=== PATIENT | male | born 1995 | race Caucasian/White ===

== ENCOUNTER 2020-01-30 08:32 | Outpatient (REF) | payer OTHER, SELFPAY ==
[2020-01-30 11:10] LABS: Amphetamine Screen Urine Not Detected (Not Detect); Barbiturates, Urine Not Detected (Not Detect); Benzodiazepines Screen Urine Not Detected (Not Detect); Cannabinoid Screen Urine Not Detected (Not Detect); Cocaine Screen Urine Not Detected (Not Detect); Opiate Screen Urine Not Detected (Not Detect); Phencyclidine Screen Urine Not Detected (Not Detect)
== END 2020-01-30 08:33 | disposition home or self-care (01) ==
LOC: HO.LAB 08:32
PROVIDERS: Visit Provider Clinical Nurse Specialist Psychiatric/Mental Health, Adult
DX: F31.81 Bipolar II disorder (principal)
CPT/HCPCS: 80307

== ENCOUNTER 2020-02-06 10:00 | Outpatient (RCR) | payer OTHER, SELFPAY ==
--- NOTE | 2020-01-16 12:18 | PC.NURSE ---
Patient is a 24 year old male who started the PHP program today. He self referred d/t increase in depression symptoms and reports relapsing on ETOH in September and having difficulty maintaining sobriety since. Last drink on 01/09/20. Pt is living with his mother at present and is finding his living situation is contributing to his symptoms of depression and is turning to ETOH to cope. Patient has not attended AA since the summer. Strongly encouraged patient to attend substance use groups along with [facility]. Pt will be receiving a package from [facility] with information on numerous online substance use groups to choose from. Talked to patient about restarting Vivitrol and referral to the [facility] however patient does not want to restart as he stated he did not find it helpful and did not like the injections and is worried about build up of scar tissue. Pt is interested in Naltrexone HCL, Huseyin Gonzales APRN is aware. 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 Patient denied SI. He gave verbal permission to email him a copy of his safety plan and agrees to utilize this if feeling unsafe. He stated he has the crisis number and can call Adam his therapist if needed. Medications reconciled with patient and patients pharmacy. Stated he is taking medications as prescribed.
[2020-01-16 13:16] VITALS: BMI 55.2
--- NOTE | 2020-01-16 16:05 | HO.PS.ADMBH ---
HPI Chief Complaint: depression Sources of Information: patient interviewed and chart reviewed HPI Narrative: 24 yo male, self-referred, hx of bipolar II disorder, for treatment of depression, lability, situational stress, struggling to remain sober as I drink to repress emotions . Reports repetitive relapses-most recently Sep 2019. States I need to make some changes-if I want to make [facility] progress I need to leave home. I have gaps in my recovery plan I need to work on. Describes a very supportive family- when I am doing bad but with an increase in emotional and financial demands when doing well. Reports he is sleeping adequately, appetite is WNL and energy is moderate. Does report passive SI, guilt, feelings of hopelessness and helplessness and low interest. Past Psychiatric History: In Pt: 2018 and 2019 Out Pt: Adam Viera for psychotherapy with [facility] and Dr. 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 Lives with mother, sister, brother Substance History: Recent detox-[facility] Hx ETOH~ 1 pint daily, last use 01/08 Cannabis last used May 2019 LSD, Mushrooms last used 2016 Trauma History: Denies Diagnostics Vital Signs (24Hr): Body Mass Index 55.2 Meds/Allergies Allergies Allergies Allergy/AdvReac Type Severity Reaction Status Date / Time amoxicillin [AMOXICILLIN] Allergy Unknown HIVES Unverified 11/14/19 19:39 Mental Status Exam Mental Status Exam Patient Orientation: Person, Place, Time and Situation Level of Consciousness: Awake, Appropriate and Alert Patient Behavior: Appropriate, Talkative and Cooperative Mood Description: Calm, Depressed and Flat Affect Description: Flat Patient Cognition Impaired: No Ability to Follow Directions: Excellent Speech Pattern: Clear, Appropriate and Spontaneous Speech Memory Description: Intact Hallucinations: None Delusions: Not Present Thought Process: Intact Thought Content: positive for Intact Depressive Symptoms: Diff. Making Decisions, Loss of Int. in Activity, Hopelessness, Feelings of Guilt, Unhappiness and Loss of Energy Judgement: Good Assessment & Plan Patient educated on: medication risk/benefits (Begin Naltrexone 50 mg daily to assist sobriety efforts), substance abuse and therapeutic strategies Informed Consent: understands and further education needed Reason for continued partial hosp. stay Substantial Risk for: inability to function Certification I certify that partial hospital treatment is medically necessary due to the symptoms and problems resulting from the patient's mental illness and the failure to treat the patient at the partial hospital level of care would likely result in the patient requiring inpatient psychiatric care which could not be prevented at a less intensive level of care.
--- NOTE | 2020-01-20 12:53 | HO.PHPPROGNO ---
Subjective Subjective Reason For Visit: depression Interim History: Narrative: 24 yo male, self-referred, hx of bipolar II disorder, for treatment of depression, lability, situational stress, struggling to remain sober as I drink to repress emotions . Reports repetitive relapses-most recently Sep 2019. States I need to make some changes-if I want to make group home progress I need to leave home. I have gaps in my recovery plan I need to work on. Describes a very supportive family- when I am doing bad but with an increase in emotional and financial demands when doing well. Reports he is sleeping adequately, appetite is WNL and energy is moderate. Does report passive SI, guilt, feelings of hopelessness and helplessness and low interest. Past Psychiatric History: In Pt: 2018 and 2019 Out Pt: Adam Viera for psychotherapy with [facility] and Dr. Martínez for psychopharmacology Trials: Prozac, Lamictal, Atarax, Wellbutrin, Vivitrol PHP/IOP: two admissions Current note 01/20/2020 Pt has been doing ok sober x 1 week arturo was drinking pint day hx of dui in past off probation longest sobriety 2 1/2 months on naltrexone was on naltrexone in past has been in rehab previously wants to find sponsor has hx mood dx works with [employer] past history of nolvia and not for 1 year was not taking meds when drinking currently taking them as prescribed taking 150 mg of lamotrigine fluoxetine and Wellbutrin. Mood stable trying to find strategies to help with drinking and self-medication no SI some difficulty with sleep concentration okay some diminished pleasure Mental Status Exam Mental Status Exam Narrative: some hopelessness helplessness periods of despair feeling better no thoughts of self-harm has been sober Patient Orientation: Person, Place, Time and Situation Level of Consciousness: Awake, Appropriate and Alert Patient Behavior: Appropriate, Talkative and Cooperative Mood Description: Calm, Depressed and Flat Affect Description: Flat Patient Cognition Impaired: No Ability to Follow Directions: Excellent Speech Pattern: Clear, Appropriate and Spontaneous Speech Memory Description: Intact Thought Process: Intact Thought Content: positive for Intact, negative for Suicidal Ideation and negative for Homicidal Ideation Depressive Symptoms: Increased Anxiety, Insomnia and Loss of Int. in Activity Judgement: Good Diagnostics Vital Signs (24Hr): Body Mass Index 55.2 Assessment & Plan Assessment & Plan (1) Bipolar 2 disorder, major depressive episode: Status: Acute Code(s): F31.81 - Bipolar II disorder (2) Alcohol use disorder, moderate, in early remission: Status: Acute Code(s): F10.21 - Alcohol dependence, in remission Assessment and Plan: patient remains sober improved mood restarting medication and avoiding alcohol seems committed to sobriety consist continue naltrexone Lamictal Prozac and Wellbutrin follow-up with Dr. Elle Mcclelland Patient educated on: diagnosis, medication risk/benefits and substance abuse Informed Consent: understands Certification I certify that partial hospital treatment is medically necessary due to the symptoms and problems resulting from the patient's mental illness and the failure to treat the patient at the partial hospital level of care would likely result in the patient requiring inpatient psychiatric care which could not be prevented at a less intensive level of care. Greater than 50% of the session was spent on counseling and/or coordination of care Discharge Plan Discharge Attending provider: Jerardo Zhang Medications: New naltrexone 50 mg tablet 50 mg PO DAILY Qty: 30 RF: 0 Changed lamotrigine [Lamictal] 150 mg Tablet 150 mg PO BEDTIME Qty: 0 RF: 0 No Action bupropion HCl 75 mg Tablet 75 mg PO DAILY RF: 0 fluoxetine [Prozac] 20 mg Capsule 20 mg PO DAILY RF: 0
--- NOTE | 2020-01-27 13:03 | HO.PHPPROGNO ---
Subjective Subjective Date of Service: 01/27/20 Reason For Visit: depression alcohol use dx Interim History: Patient flat dysphoric has remained sober. More agreeable to addressing the bipolar depression peace. He continues to have cravings does not like how he feels on naltrexone did not particularly feel Vivitrol was helpful although may have helped with the intensity of binges nausea with naltrexone no SI needs to keep himself busy Medication Compliance: Intermittent Side effects from medications: Yes Attending Groups: Yes Mental Status Exam Mental Status Exam Patient Behavior: Appropriate Mood Description: Constricted, Depressed and Flat Affect Description: Constricted, Depressed and Blunted Delusions: Not Present Thought Process: Intact and Rumination Thought Content: positive for Goal Oriented, negative for Suicidal Ideation and negative for Homicidal Ideation Depressive Symptoms: Increased Irritability, Feelings of Guilt and Difficulty Concentrating Judgement: Fair Diagnostics Vital Signs (24Hr): Body Mass Index 55.2 Assessment & Plan Assessment & Plan (1) Alcohol use disorder, moderate, in early remission: Status: Acute Code(s): F10.21 - Alcohol dependence, in remission Assessment and Plan: naltrexone vs campral vs topamax (2) Bipolar 2 disorder, major depressive episode: Status: Acute Code(s): F31.81 - Bipolar II disorder Assessment and Plan: inc lamictal 200 mg consider latuda Certification I certify that partial hospital treatment is medically necessary due to the symptoms and problems resulting from the patient's mental illness and the failure to treat the patient at the partial hospital level of care would likely result in the patient requiring inpatient psychiatric care which could not be prevented at a less intensive level of care. Greater than 50% of the session was spent on counseling and/or coordination of care Discharge Plan Discharge Attending provider: Jerardo Zhang Medications: New naltrexone 50 mg tablet 50 mg PO DAILY Qty: 30 RF: 0 lamotrigine [Lamictal] 200 mg tablet 200 mg PO DAILY 30 Days Qty: 30 RF: 0 Discontinued lamotrigine [Lamictal] 150 mg Tablet 75 mg PO BEDTIME RF: 0 No Action bupropion HCl 75 mg Tablet 75 mg PO DAILY RF: 0 fluoxetine [Prozac] 20 mg Capsule 20 mg PO DAILY RF: 0
--- NOTE | 2020-02-06 13:30 | HO.PHPPROGNO ---
Subjective Subjective Date of Service: 02/06/20 Reason For Visit: depression alcohol use dx Interim History: pt sober mood stable feels like lamictal has been helpful Medication Compliance: Yes Mental Status Exam Mental Status Exam Narrative: mood stable future oriented committed to sobriety Patient Behavior: Appropriate Mood Description: Constricted, Depressed and Flat Affect Description: Constricted, Depressed and Blunted Delusions: Not Present Thought Process: Intact and Rumination Thought Content: positive for Goal Oriented, negative for Suicidal Ideation and negative for Homicidal Ideation Judgement: Fair Diagnostics Vital Signs (24Hr): Body Mass Index 55.2 Assessment & Plan Assessment & Plan (1) Alcohol use disorder, moderate, in early remission: Status: Acute Code(s): F10.21 - Alcohol dependence, in remission (2) Bipolar 2 disorder, major depressive episode: Status: Acute Code(s): F31.81 - Bipolar II disorder Assessment and Plan: pt safe for discharge future oriented improved with lamictal 200 mg Certification I certify that partial hospital treatment is medically necessary due to the symptoms and problems resulting from the patient's mental illness and the failure to treat the patient at the partial hospital level of care would likely result in the patient requiring inpatient psychiatric care which could not be prevented at a less intensive level of care. Greater than 50% of the session was spent on counseling and/or coordination of care Discharge Plan Discharge Attending provider: Jerardo Zhang Medications: New naltrexone 50 mg tablet 50 mg PO DAILY Qty: 30 RF: 0 lamotrigine [Lamictal] 200 mg tablet 200 mg PO DAILY 30 Days Qty: 30 RF: 0 Discontinued lamotrigine [Lamictal] 150 mg Tablet 75 mg PO BEDTIME RF: 0 No Action bupropion HCl 75 mg Tablet 75 mg PO DAILY RF: 0 fluoxetine [Prozac] 20 mg Capsule 20 mg PO DAILY RF: 0
== END 2020-02-06 23:55 | disposition home or self-care (01) ==
LOC: HO.PHPA 10:00
PROVIDERS: Visit Provider Psychiatry & Neurology Psychiatry
DX: F32.9 Major depressive disorder, single episode, unspecified (principal); F31.81 Bipolar II disorder
CPT/HCPCS: 90792; 90853; 99212; 99213